=== PATIENT | male | born 1960 | race Caucasian/White ===

== ENCOUNTER 2016-12-25 11:14 | Inpatient (IN) | payer MEDICARE, MEDICAID ==
[~2016-12-25] VITALS: Ht 180.3 cm; Wt 160.3 kg
[2016-12-25] VITALS (10 sets, daily range): BP systolic 120–150; BP diastolic 66–98
[~2016-12-25 11:14] MED LIST: ALDACTONE 50MG50 MG PO; BACTRIM DS 8001 TA1 PO; BUPROPION HCL75 M1 PO; CARVEDILOL 1212.5 MG PO; FUROSEMIDE 40MG40 M1 PO; GABAPENTIN800 MG PO; HUMULIN R U-500 U/ML SC; INSULIN GL100 UNITS/ SC; KEFLEX 500MG.500 MG PO; LACTULOSE10 GM/15 M PO; LASIX 20MG. TAB20 MG PO; LEVAQUIN500 MG PO; MELOXICAM15 MG PO; MELOXICAM7.5 MG PO; OXYCODONE AND A1 TA4 PO; OXYCODONE HCL10 M1 PO; POTASSIUM CHLO10 ME1 PO; SIMVASTATIN40 MG PO
[2016-12-25 11:37] LABS: HEMOGLOBIN 12.6 g/dL (14.1-18.0); LYMPH # 1.1 K/mm3 (0.7-4.5)
[2016-12-25 12:02] LABS: BUN 31 mg/dL (7-18)
[2016-12-25 12:03] LABS: GFR (ESTIMATED) 57 ML/MIN (>60)
--- NOTE | 2016-12-25 12:10 | Emergency Room Report ---
History of Present Illness Time Seen by 112Garett Presenting Problem in Triage Pt arrived:Walked Presenting Problem:PT C/O BUILD-UP OF FLUID IN HIS ABD. PT NEWLY DIAGNOSED CANCER AND CIRRHOSIS. PT ABD IS LARGE AND HARD TO TOUCH, PT C/O FEELING SOA Onset of symptoms date/time:/ or onset unknown for:MEDICAL HX UNKNOWN Treatment Prior to Arrival: GARDE MANGER Provided by: Sepsis Risk Assessment: Temp: 98.6 B/P: 114/48 MAP: 96 Pulse: 80 Resp: 16 Recent fever? N Clinical Suspician of Infection? N Mental Status: 1 - Regular (Normal Baseline) Sepsis Risk:Low Sepsis Risk Have you (or family members/close friends) recently traveled outside the [place]? N If Yes, where/when: Have you had exposure to infectious disease within the past month? N TB? Other? Specify: Comment History is obtained primarily from the patient's daughter. He has a history of "cancer" and cirrhosis. He has massive ascites. He is still undergoing evaluation for the cancer to determine the extent and primary source. His daughter states that scan so far have detected it in his lung, sternum, back, stomach, and colon. He has had 3 paracentesis procedures performed for his ascites, she believes the last was 12 days ago. He had it performed once here and twice at [facility]. He is scheduled to have a liver biopsy done this coming Friday on December 30. He sees Dr. Issa for cancer. His primary care physician is Dr. Chinchilla. His daughter states that he has increasing swelling of his abdomen and legs, worsening over the past 2 days and causing him difficulty breathing. He has confusion which she says is related to his ammonia level. She called Dr. Chinchilla' s office today and says that she was advised to bring him to the hospital to have paracentesis. He complains of generalized abdominal discomfort. He is requesting pain medication. ALLERGIES Coded Allergies: acetaminophen (From DARVOCET-N 100) (Mild, 05/12/16) amoxicillin (From AUGMENTIN) (Mild, 12/25/16) clavulanic acid (From AUGMENTIN) (Mild, 12/25/16) hydrocodone (From LORTAB) (Mild, 05/12/16) lisinopril (Mild, 05/12/16) propoxyphene (From DARVOCET-N 100) (Mild, 05/12/16) tramadol (From ULTRAM) (Mild, 12/25/16) Home Medications Active Scripts Spironolactone (Aldactone 50MG Tablet) 50 MG PO BID #30 TAB Prov: 11/16/16 Furosemide (Lasix 20MG) 20 MG PO DAILY #30 TAB Prov: 11/16/16 Reported Medications INSULIN REGULAR, HUMAN (Humulin R U-500) 40 UNITS SC 0900,1300 #20 VIAL INSULIN REGULAR, HUMAN (Humulin R U-500) 50 UNITS SC 1700 Potassium Chloride 10 MEQ PO DAILY #30 TAB Carvedilol (Carvedilol 12.5MG) 12.5 MG PO BID #60 Gabapentin (Gabapentin 800MG) 800 MG PO QID #90 TAB Lactulose (Lactulose) 10 GM PO QID Oxycodone 10 Mg\\[id number] (Oxycodone-Acetaminophen 10-325) 1 TAB PO Q4HP PRN PAIN History Medical History General CAD? No Angina: Yes NV: No Hypertension? Yes Hyperlipidemia? Yes CHF? No DVT? Yes PE? No COPD? No Asthma? No Anemia? No GERD? No Gastric ulcers? No GI Bleed? No Hernia? No Thyroid Problems? No Hypothyroidism? No CVA? No Seizures? 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 Yes Renal Insuffiency? No End Stage Renal Disease? No UTI? No Stones? No BPH? No GB Disease: No Nephritic Syndrome? No Asplenia? No Hepatitis? No Sickle Cell Disease? No Arthritis? No Migraines? No Cataracts? No Glaucoma? No MRSA? No HIV? No TB? No Anxiety? No Depression? No Cancer? No More? No Immunization Hx DT/Tetanus Unknown Flu Refused Pneumonia Refuses Surgical Hx Previous Surgery?Y BACK X2 FOOT Family History Family Hx Diabetes Yes CAD Yes Hypertension Yes Hyperlipidemia Yes Cancer Yes TB No Social History Smoking Hx Smoker: Former Smoker Tobacco: No Packs/day 1 1/2 - 2 Packs Alcohol Alcohol: No Review of Systems All Other Systems Reviewed and Negative Constitutional denies fever, malaise Respiratory shortness of breath Cardiovascular denies chest pain, edema Gastrointestinal see HPI, abdominal pain Skin other (weeping leg sores) Psychiatric/Neurological see HPI Physical Exam Vital Signs Vital Signs Date Time Temp Pulse Resp B/P Pulse O2 O2 Flow FiO2 Ox Delivery Rate 12/25 1341 16 12/25 1308 80 16 109/69 96 12/25 1203 80 16 114/48 96 12/25 1117 98.6 88 16 134/78 95 General Appearance large tense abdomen consistent with massive ascites Eye Exam - bilateral eye normal exam, bilateral eye PERRL, bilateral eye EOMI Ear, Nose, Throat hearing grossly normal, normal ENT inspection Neck normal inspection, non-tender, supple, full range of motion Respiratory Status Yes: trachea midline, chest symmetrical, non tender chest. No: respiratory distress. Lung Sounds bilateral: normal breath sounds, lungs clear. Cardiovascular normal exam, regular rate/rhythm, no peripheral edema, no gallop, no JVD, no murmur, no rub, normal peripheral pulses Peripheral Pulses Pulses normal Yes Gastrointestinal normal bowel sounds, normal exam, non tender, soft, no organomegaly Back normal inspection, no CVA tenderness, no vertebral tenderness Extremities 2+ pitting edema of ankles. Severe venous stasis changes of lower legs. Weeping ruptured vesicles posterior LEFT lower leg. No signs of cellulitis. Neurologic drowsy, asterixis Mental status normal mood/affect Medical Decision Making LABS/Meds/Orders Pt receiving controlled substance in ED? Yes Charlie was queried for this patient? Yes Reference #: [id number] Comment 21 rxs, last rx 90 oxycodone 10mg on 12/23/16 Results/Orders Laboratory Tests 12/25/16 1241: VBG pH 7.28 L, VBG Total CO2 25.0, VBG O2 Sat (Calc) 80.9 H, VBG Base Excess - 3.4 L, Mixed VBG pCO2 51.3 H, Mixed VBG pO2 50.6 H, Mixed VBG HCO3 23.4 12/25/16 1225: Ammonia 56 H, Acetone Level NONE DETECTED 12/25/16 1130: Sodium 131 L, Potassium 5.4 H, Chloride 97 L, Carbon Dioxide 27, BUN 31 H, Creatinine 1.3, Estimated Creat Clear 135, Estimated GFR (MDRD) 57, Glucose 566 *H, Calcium 9.3, Total Bilirubin 0.8, AST 27, ALT 25, Alkaline Phosphatase 117 H, Creatine Kinase 31 L, CK-MB (CK-2) Rel Index 1.6, CK and CKMB Interp 0.5, Troponin I < 0.02, Total Protein 7.2, Albumin 2.5 L, Globulin 4.7 H, Albumin/ Globulin Ratio 0.5 L, PT 11.2, INR 1.05, WBC 6.8, RBC 3.98 L, Hgb 12.6 L, Hct 38.7 L, MCV 97.3, RDW 15.4, Plt Count 151, MPV 7.1 L, Gran % 75.9, Gran # 5.2, Lymphocytes % 16.0, Monocytes % 6.7, Eosinophils % 1.2, Basophils % 0.2, Lymphocytes # 1.1, Monocytes # 0.5, Eosinophils # 0.1, Basophils # 0.0, PUBS MCHC 32.6, MCH 31.7 H Current Medication Orders Sig/Kika Start time Last Medication Dose Route Stop Time Status Admin Insulin Human [rDNA 10 UNITS ONCE ONE 12/25 1315 DC 12/25 origin] SC 12/25 1316 1307 Morphine Sulfate 4 MG ONCE ONE 12/25 1315 DCr 12/25 IV 12/25 1316 1341 Ondansetron HCl 4 MG ONCE ONE 12/25 1315 DC 12/25 IV 12/25 1316 1341 Morphine Sulfate 0 .STK-MED ONE 12/25 1303 DCr .ROUTE Ondansetron HCl 0 .STK-MED ONE 12/25 1303 DC .ROUTE Insulin Human [rDNA 0 .STK-MED ONE 12/25 1302 DC origin] SC Insulin Human [rDNA 10 UNITS ONCE ONE 12/25 1230 CAN origin] SC 12/25 1231 Sodium Chloride 10 ML PRN PRN 12/25 1130 AC IV 12/26 1129 Orders Procedure Date/time Status Decision to admit 12/25 1336 Active PROTHROMBIN TIME 12/25 1237 Complete VENOUS BLOOD GAS 12/25 1219 Active AMMONIA 12/25 1219 Complete Acetone, Serum 12/25 1219 Complete US BIOPSY OR PARACENTESIS 12/25 1218 Active ELECTROCARDIOGRAM REQUEST 12/25 1129 Active IV SALINE LOCK 12/25 1129 Active CBC WITH AUTO DIFF 12/25 1129 Complete CARDIAC ENZYMES 12/25 1129 Complete CHEM 12 PROFILE 12/25 1129 Complete 12 LEAD EKG-EVA (INITIAL) 12/25 UNK Active CM/EKG CM/EKG Comments EKG interpreted by Hany Kee MD: Rhythm: sinus Rate: 80 Burton: normal Ectopy: none Conduction: normal ST Segment Changes: none T Wave Changes: none Q Waves: none No evidence of acute ischemia or injury Normal electrocardiogram XRAY/CT/US XRAY/CT/US XRAY chest Comment X-ray interpreted by radiologist: LEFT lower lobe atelectasis Progress - 12:45 PM: Case discussed with Dr. Pritchett, radiologist. He would prefer for the paracentesis to be done in the morning. He reports that after the patient's last paracentesis here he leaked for days and had to have a colostomy bag put on to catch the leaking fluid. 1:30 PM: I have discussed the case with Dr. Chinchilla who agrees to admit the patient to the hospital. We discussed the patient's clinical information, including history, exam, laboratory and radiology results and ED course. Per hospital procedure, I will write temporary bridge inpatient orders on the patient. Specific orders requested by the admitting physician: High-dose sliding scale insulin, paracentesis in the morning (radiology notified), continue his home pain medication Departure Departure Disposition Still a Patient Clinical Impression Primary Impression: Ascites Qualifiers: Ascites type: other type Qualified Code: R18.8 - Other ascites Secondary Impressions: Cirrhosis Qualifiers: Hepatic cirrhosis type: unspecified hepatic cirrhosis Ascites presence: with ascites Qualified Code: K74.60 - Unspecified cirrhosis of liver Hyperglycemia Condition STABLE Referrals Renée SANTIAGO,Prashant Su (Family) ED Critical Care Critical Care No at [id number]
[2016-12-25 12:45] LABS: VENOUS ABE -3.4 MMOL/L (-2.4-2.3); VENOUS O2 SAT 80.9 % (75-80)
--- NOTE | 2016-12-25 13:20 | RADIOLOGY REPORT PS360 ---
CHEST-PORTABLE HISTORY: Shortness of air SOA ORDERING PHYSICIAN: Hany Kee MD PATIENT AGE: 56 years COMPARISON: 11/13/2016 FINDINGS: Somewhat limited exam secondary to low lung volumes and patient body habitus. Atelectatic changes are present in the left lower lobe. 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 IMPRESSION: Limited study with left lower lobe atelectasis
[2016-12-25] MEDS ORDERED: PANTOPRAZOLE SO40 M1 PO (16:50)
[2016-12-26 04:42] VITALS: BP 124/67
[2016-12-26 06:31] LABS: HEMOGLOBIN 12.3 g/dL (14.1-18.0); LYMPH % 12.5 % (10-50)
--- NOTE | 2016-12-26 07:16 | PHARMACY CLINIC NOTE ---
Patient Demographics Patient Demographics Admission date: 12/25/16 Date: 12/26/16 Time: 0715 Allergies Coded Allergies: acetaminophen (From DARVOCET-N 100) (Mild, 05/12/16) amoxicillin (From AUGMENTIN) (Mild, 12/25/16) clavulanic acid (From AUGMENTIN) (Mild, 12/25/16) hydrocodone (From LORTAB) (Mild, 05/12/16) lisinopril (Mild, 05/12/16) propoxyphene (From DARVOCET-N 100) (Mild, 05/12/16) tramadol (From ULTRAM) (Mild, 12/25/16) HEIGHT- FT: 5 IN: 11.00 K.319 VTE General Information Labs: Laboratory Tests 12/26 12/25 0615 1130 Coagulation PT (9.4 - 11.8 SECONDS) 11.2 INR (0.9 - 1.1) 1.05 Hematology Hgb (14.1 - 18.0 g/dL) 12.3 L 12.6 L Hct (42.0 - 52.0 %) 37.7 L 38.7 L Plt Count (142 - 424 K/mm3) 161 151 Disclaimer The following section includes nursing documentation that has been pulled in for pharmacy review. Patient's VTE score: 4 Patient's VTE Risk: LOW RISK Clinical trial participant? No VTE prophylaxis [id number] [id number] VTE prophylaxis ordered? Yes Type of prophylaxis/treatment: LARISA at 0716
[2016-12-26 08:00] VITALS: BP 116/66
--- NOTE | 2016-12-26 08:48 | Discharge Summary Standard ---
Demographics: Admit date: 12/25/16 Chief complaint: acities PRIMARY DIAGNOSIS: ascites Allergies: Coded Allergies: acetaminophen (From DARVOCET-N 100) (Mild, 05/12/16) amoxicillin (From AUGMENTIN) (Mild, 12/25/16) clavulanic acid (From AUGMENTIN) (Mild, 12/25/16) hydrocodone (From LORTAB) (Mild, 05/12/16) lisinopril (Mild, 05/12/16) propoxyphene (From DARVOCET-N 100) (Mild, 05/12/16) tramadol (From ULTRAM) (Mild, 12/25/16) History of present illness: History of present illness: 56-year-old male presented to the ER for ascites. Patient has been worked up with for possible liver cancer with metastases. Patient has had 3 paracentesis the last one was 12 days ago at . Patient state the fluid had built up so much he felt like he couldn't breathe. Admitted for a paracentesis. Patient is to have a liver biopsy December 30 at . Patient states this morning he feels better. Past medical history: Family HX Diabetes Yes CAD Yes Hypertension Yes Hyperlipidemia Yes Cancer Yes TB No Immunization HX DT/Tetanus Unknown Flu Refused Pneumonia Refuses TB Test in last year No General CAD? No Angina: Yes DC: No Hypertension? Yes Hyperlipidemia? Yes CHF? No DVT? Yes PE? No COPD? No Asthma? No Anemia? No GERD? No Gastric ulcers? No GI Bleed? No Hernia? No Thyroid Problems? No Hypothyroidism? No CVA? No Seizures? 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 Yes Renal Insuffiency? No UTI? No Stones? No BPH? No GB Disease: No Nephritic Syndrome? No Asplenia? No Hepatitis? No Sickle Cell Disease? No Arthritis? No Migraines? No Cataracts? No Glaucoma? No MRSA? No HIV? No TB? No Anxiety? No Depression? No Cancer? No More? No Past Surgical HX Previous Surgery?Y BACK X2 FOOT ABCESS REMOVAL Current home meds: Active Scripts Spironolactone (Aldactone 50MG Tablet) 50 MG PO BID #30 TAB Prov: 11/16/16 Reported Medications INSULIN REGULAR, HUMAN (Humulin R U-500) 40 UNITS SC 0900,1300 #20 VIAL INSULIN REGULAR, HUMAN (Humulin R U-500) 50 UNITS SC 1700 Potassium Chloride 10 MEQ PO DAILY #30 TAB Carvedilol (Carvedilol 12.5MG) 12.5 MG PO BID #60 Lactulose (Lactulose) 30 ML PO QAM OXYCODONE HCL (Oxycodone HCl) 10 MG PO TIDP PRN PAIN Pantoprazole Sodium 40 MG PO BID #60 Furosemide (Furosemide 40MG) 40 MG PO DAILY Gabapentin (Gabapentin 800MG) 800 MG PO QID #90 TAB Social Hx: Smoking HX Tobacco No Type Cigarettes Packs/day < 1 PACK Are you/the child exposed to second-hand smoke: Yes Alcohol Alcohol: No Hx of Drug Use Drug Use? No Review of systems: Constitutional see HPI, malaise, weakness. Respiratory see HPI, shortness of breath, SOB with excertion, SOB at rest. Cardiovascular see HPI Gastrointestinal/Abdominal see HPI, abdominal pain, other Genitourinary see HPI. Musculoskeletal No: no symptoms reported. Skin No: no symptoms reported. Neurological Yes: weakness. No: see HPI. Psychiatric No: no symptoms reported. Exam: Lab data for last 24 hours: Laboratory Tests 12/26/16 0615: Sodium 133 L, Potassium 5.3 H, Chloride 98, Carbon Dioxide 31, BUN 27 H, Creatinine 1.0, Estimated Creat Clear 183, Estimated GFR (MDRD) 77, Glucose 344 H, Calcium 9.3, WBC 8.2, RBC 4.00 L, Hgb 12.3 L, Hct 37.7 L, MCV 94.3, RDW 15.5, Plt Count 161, MPV 6.9 L, Gran % 77.5, Gran # 6.3, Lymphocytes % 12.5, Monocytes % 7.2, Eosinophils % 2.3, Basophils % 0.6, Lymphocytes # 1.0, Monocytes # 0.6, Eosinophils # 0.2, Basophils # 0.1, PUBS MCHC 32.6, MCH 30.7 12/25/16 2115: Glucose 534 *H 12/25/16 2103: POC Glucose 529 *H 12/25/16 1741: Glucose 549 *H 12/25/16 1729: POC Glucose >550 *H 12/25/16 1241: VBG pH 7.28 L, VBG Total CO2 25.0, VBG O2 Sat (Calc) 80.9 H, VBG Base Excess - 3.4 L, Mixed VBG pCO2 51.3 H, Mixed VBG pO2 50.6 H, Mixed VBG HCO3 23.4 12/25/16 1225: Ammonia 56 H, Acetone Level NONE DETECTED 12/25/16 1130: Sodium 131 L, Potassium 5.4 H, Chloride 97 L, Carbon Dioxide 27, BUN 31 H, Creatinine 1.3, Estimated Creat Clear 135, Estimated GFR (MDRD) 57, Glucose 566 *H, Calcium 9.3, Total Bilirubin 0.8, AST 27, ALT 25, Alkaline Phosphatase 117 H, Creatine Kinase 31 L, CK-MB (CK-2) Rel Index 1.6, CK and CKMB Interp 0.5, Troponin I < 0.02, Total Protein 7.2, Albumin 2.5 L, Globulin 4.7 H, Albumin/ Globulin Ratio 0.5 L, PT 11.2, INR 1.05, WBC 6.8, RBC 3.98 L, Hgb 12.6 L, Hct 38.7 L, MCV 97.3, RDW 15.4, Plt Count 151, MPV 7.1 L, Gran % 75.9, Gran # 5.2, Lymphocytes % 16.0, Monocytes % 6.7, Eosinophils % 1.2, Basophils % 0.2, Lymphocytes # 1.1, Monocytes # 0.5, Eosinophils # 0.1, Basophils # 0.0, PUBS MCHC 32.6, MCH 31.7 H Hospital Course Hospital Course: 8liter drained during the paracentesis. today pt states feeling much better. no drainage noted from bandaid. Pt request to be dc home. Keep jre 12/30 for liver bx. Medications Medications: Discharge meds are as noted. Follow up Follow up in office in: 6 DAYS with: John SANTIAGO,Prashant Su Comment: rounded with john at 1307
[2016-12-26] MEDS ORDERED: FUROSEMIDE40 MG PO (09:07)
--- NOTE | 2016-12-26 09:33 | RADIOLOGY REPORT PS360 ---
US BIOPSY OR PARACENTESIS HISTORY: Ascites with respiratory compromise ascites - ultrasound guided paracentesis ORDERING PHYSICIAN: Prashant Chinchilla MD PATIENT AGE: 56 years COMPARISON: None PROCEDURE: Following obtaining informed consent and after appropriate Time out, under aseptic conditions and local anesthesia with 1% buffered lidocaine using sonographic guidance a 4 [place]ijani one-step catheter was inserted into the largest pocket of fluid localized in the right lower quadrant. Approximately 8 L of Serosanguineous fluid was drained. The patient tolerated the procedure well and left the radiology suite in stable condition. Patient noted improvement in breathing during the exam IMPRESSION: Successful sonographic guided paracentesis without complication
[2016-12-26 15:00] VITALS: BP 116/66
== END 2016-12-26 14:45 | disposition home or self-care (01) | DRG 433 ==
LOC: ER 11:14 → 2ND 11:45 → ER 13:57 → 2ND 12-26 14:45
PROVIDERS: Emergency Medicine
PROC: 0W9G3ZZ Drainage of Peritoneal Cavity, Percutaneous Approach (ICD-10-PCS; principal; 2016-12-25)
DX: K74.69 Other cirrhosis of liver (principal); R18.8 Other ascites; I10 Essential (primary) hypertension; Z72.0 Tobacco use; E11.9 Type 2 diabetes mellitus without complications; Z79.4 Long term (current) use of insulin
CPT/HCPCS: J2405